=== PATIENT | female | born 1990 | race Hispanic/Latino ===

== ENCOUNTER 2018-03-11 11:22 | Observation (INO) | payer MEDICAID ==
[~2018-03-11] VITALS: Ht 162.6 cm; Wt 81.2 kg
[2018-03-11 11:58] LABS: APPEARANCE,URINE Turbid (CLEAR); BILIRUBIN,URINE Negative (NEGATIVE); COLOR,URINE Yellow (YELLOW); GLUCOSE, URINE (UA) Negative (NEGATIVE); KETONES,URINE Negative (NEGATIVE); LEUKOCYTE ESTERASE ,URINE Large (NEGATIVE); NITRATE,URINE Negative (NEGATIVE); OCCULT BLOOD,URINE Trace (NEGATIVE); PH,URINE 5.5 (5.0-8.0); PROTEIN,URINE POS 1+ (NEGATIVE)
[2018-03-11 12:05] LABS: BACTERIA,URINE Few /HPF (None Seen); SQUAMOUS EPITHELIAL CELL,UR Few /HPF (0-2); WBC,URINE 51-100 /HPF (0-1)
[2018-03-11 12:06] LABS: MUCUS,URINE Moderate LPF (None Seen)
[2018-03-11] MEDS ORDERED: LACTATED RINGERS 1000ML 1,000 ML IV PRN (13:08)
[2018-03-11] MEDS ORDERED: CEFTRIAXONE 1GM/D5W 50ML 50 ML IV SCH (13:15)
[2018-03-11] MEDS ORDERED: CEFTRIAXONE SODIUM 1 GM IVP SCH (13:30)
[2018-03-11 14:50] VITALS: BP 107/64
== END 2018-03-11 15:15 | disposition home or self-care (01) ==
LOC: LDH 11:22
PROVIDERS: ADMIT Specialist; ATTEND Specialist
DX: O60.03 Preterm labor without delivery, third trimester (principal); Z3A.32 32 weeks gestation of pregnancy
CPT/HCPCS: 59025; 76819 ×2; 81001; 96374; G0378 ×5; J0696 ×2; 96360

== ENCOUNTER 2018-04-02 14:59 | Observation (INO) | payer MEDICAID ==
[2018-04-02] MEDS ORDERED: LACTATED RINGERS 1000ML 1,000 ML IV SCH (15:30)
[2018-04-02] MEDS ORDERED: LACTATED RINGERS 1000ML 1,000 ML IV ONE (15:34)
[2018-04-02] MEDS ORDERED: TERBUTALINE SULFATE VIAL 1MG/ML SQ ONE (17:45)
== END 2018-04-03 10:09 | disposition home or self-care (01) ==
LOC: INTOOBSV 14:59 → LDH 14:59 → OBSVTOIN 14:59 → UNDOADMOB 14:59
PROVIDERS: ADMIT Specialist; ATTEND Specialist
DX: O30.003 Twin pregnancy, unspecified number of placenta and unspecified number of amniotic sacs, third trimester (principal); O26.893 Other specified pregnancy related conditions, third trimester; R10.9 Unspecified abdominal pain; O99.323 Drug use complicating pregnancy, third trimester; F19.10 Other psychoactive substance abuse, uncomplicated; Z3A.35 35 weeks gestation of pregnancy
CPT/HCPCS: 76819 ×2; 96360; 96361 ×3; 96372; G0378 ×20; J3105; J7120 ×3

== ENCOUNTER 2018-04-08 12:00 | Inpatient (IN) | payer MEDICAID ==
[~2018-04-08] VITALS: Ht 160 cm; Wt 90.3 kg
[2018-04-08 15:18] LABS: HEMATOCRIT 30.6 % (36-48); MEAN CORPUSCULAR HEMOGLOBIN 25.5 pg (27.0-33.0); MEAN CORPUSCULAR HGB CONC 32.7 g/dL (32.0-36.0); NUCLEATED RED BLOOD CELLS 0.1 % (0.0-0.19); PLATELET COUNT (AUTO) 172 K/uL (130-400); RED BLOOD CELL COUNT(AUTO) 3.92 MIL/uL (4.00-5.50); RED CELL DISTRIBUTION WIDTH 15.2 % (11.0-15.5); WHITE BLOOD COUNT (AUTO) 8.5 K/uL (4.8-10.8)
[2018-04-09 09:19] LABS: HEPATITIS Bs ANTIGEN SCREEN P Negative (Negative)
[2018-04-10] MEDS ORDERED: LACTATED RINGERS 1000ML 1,000 ML IV SCH (06:00)
[2018-04-10] MEDS ORDERED: CEFAZOLIN SODIUM 1 GM VIAL IVP PRN (06:00)
[2018-04-10 06:24] LABS: AMPHET/METH SCREEN,URINE NEGATIVE (NEGATIVE); BARBITURATE SCREEN, URINE NEGATIVE (NEGATIVE); BENZODIAZEPINES SCREEN,URINE NEGATIVE (NEGATIVE); CANNABINOID SCREEN,URINE NEGATIVE (NEGATIVE); COCAINE SCREEN,URINE NEGATIVE (NEGATIVE); OPIATE SCREEN,URINE NEGATIVE (NEGATIVE); PHENCYCLIDINE SCREEN,URINE NEGATIVE (NEGATIVE)
[2018-04-10] MEDS ORDERED: SENSORCAINE/DEXT/PF 0.75% 2ML AMP IJ ONE (07:30)
[2018-04-10] MEDS ORDERED: DURAMORPH PF1 MG/ML 10ML AMP IV ONE (07:32)
[2018-04-10] MEDS ORDERED: FENTANYL CITRATE PF 50 MCG/1 ML 2ML VIAL ONE (07:33)
[2018-04-10] MEDS ORDERED: CEFAZOLIN SODIUM 1 GM VIAL IVP ONE (07:59)
[2018-04-10] MEDS ORDERED: PHENYLEPHRINE HCL 10 MG/ML 1ML VIAL IV ONE (08:25)
[2018-04-10] MEDS ORDERED: ONDANSETRON HCL 4 MG/2 ML VIAL ONE (08:25)
[2018-04-10] MEDS ORDERED: SODIUM CHLORIDE 0.9% 10 ML VIAL ONE (08:25)
[2018-04-10] MEDS ORDERED: OXYTOCIN-LR 20 UNITS/1000 ML 1,000 ML IV PRN (08:38)
[2018-04-10] MEDS ORDERED: MEPERIDINE-PF 75 MG/ML SYG IM PRN (08:45)
[2018-04-10] MEDS ORDERED: SODIUM CHLORIDE 0.9% 10 ML VIAL IVP PRN (08:45)
[2018-04-10] MEDS ORDERED: PROMETHAZINE HCL 25 MG/ML 1ML AMPULE IM PRN ×2 (08:45→09:15)
[2018-04-10] MEDS ORDERED: OXYTOCIN 10 USP UNITS/ML ONE ×2 (08:56→14:08)
[2018-04-10] MEDS ORDERED: LACTATED RINGERS 1000ML 1,000 ML IV ONE (08:56)
[2018-04-10] MEDS ORDERED: ONDANSETRON HCL 4 MG/2 ML VIAL IVP PRN ×2 (09:15)
[2018-04-10] MEDS ORDERED: MORPHINE SULFATE 2 MG/ML 1ML SYG IVP PRN (09:15)
[2018-04-10] MEDS ORDERED: ONDANSETRON HCL 4 MG/2 ML 8 MG in SODIUM CHLORIDE 0.9% 50 ML IVP NR (09:15)
[2018-04-10] MEDS ORDERED: HYDROCODONE/ACETAMINOPHEN 5/325 MG TAB PO PRN (09:15)
[2018-04-10] MEDS ORDERED: METOCLOPRAMIDE 10 MG/2 ML VIAL IVP PRN (09:15)
[2018-04-10] MEDS ORDERED: DiphenhydrAMINE HCL 50 MG/ML VIAL IVP PRN (09:15)
[2018-04-10] MEDS ORDERED: EPHEDRINE SULFATE 50 MG/ML AMPULE IVP PRN (09:15)
[2018-04-10] MEDS ORDERED: NALOXONE HCL 0.4 MG/1 ML ML IVP PRN ×2 (09:15)
[2018-04-10 09:28] VITALS: BP 121/69
[2018-04-10 11:34] VITALS: BP 104/61
[2018-04-10 11:37] VITALS: BP 136/75
[2018-04-10 15:29] VITALS: BP 133/89
[2018-04-10] MEDS: HYDROCODONE/ACETAMINOPHEN 5/325 MG TAB PO PRN (18:19)
[2018-04-10] MEDS: DEXTROSE 5 %-0.45 % NACL 1,000 ML IV PRN (18:20)
[2018-04-10 19:29] VITALS: BP 134/77
[2018-04-10 23:39] VITALS: BP 130/81
[2018-04-11] MEDS: DEXTROSE 5 %-0.45 % NACL 1,000 ML IV PRN (02:20)
[2018-04-11 03:19] VITALS: BP 133/86
[2018-04-11] MEDS: HYDROCODONE/ACETAMINOPHEN 5/325 MG TAB PO PRN (03:50)
[2018-04-11 06:52] LABS: HEMATOCRIT 25.8 % (36-48); MEAN CORPUSCULAR HEMOGLOBIN 25.2 pg (27.0-33.0); MEAN CORPUSCULAR HGB CONC 32.6 g/dL (32.0-36.0); MEAN CORPUSCULAR VOLUME 77.2 fL (79-99); PLATELET COUNT (AUTO) 132 K/uL (130-400); RED BLOOD CELL COUNT(AUTO) 3.34 MIL/uL (4.00-5.50); RED CELL DISTRIBUTION WIDTH 14.7 % (11.0-15.5); WHITE BLOOD COUNT (AUTO) 8.3 K/uL (4.8-10.8)
[2018-04-11 07:50] VITALS: BP 122/77
[2018-04-11] MEDS ORDERED: DIPHENHYDRAMINE HCL 25 MG CAPSULE PO PRN (08:00)
[2018-04-11] MEDS ORDERED: ACETAMINOPHEN-CODEINE 300/30MG TAB PO PRN (08:00)
[2018-04-11] MEDS: IBUPROFEN 800 MG TAB PO SCH ×6 (08:45→23:54)
[2018-04-11] MEDS: DOCUSATE SODIUM 100 MG CAP PO SCH ×2 (09:18→20:57)
[2018-04-11 12:09] VITALS: BP 126/74
[2018-04-11] MEDS ORDERED: BISACODYL 10 MG SUPP.RECT RC PRN (15:15)
[2018-04-11 15:33] VITALS: BP 134/84
[2018-04-11] MEDS: SIMETHICONE 80 MG TAB.CHEW PO PRN ×2 (15:57→20:56)
[2018-04-11 19:50] VITALS: BP 129/84
[2018-04-11 23:54] VITALS: BP 126/77
[2018-04-12] MEDS: IBUPROFEN 800 MG TAB PO SCH ×3 (00:54→09:02)
[2018-04-12] MEDS: HYDROCODONE/ACETAMINOPHEN 5/325 MG TAB PO PRN (03:01)
[2018-04-12 03:54] VITALS: BP 130/79
[2018-04-12 08:07] VITALS: BP 130/76
[2018-04-12] MEDS: SIMETHICONE 80 MG TAB.CHEW PO PRN (09:02)
[2018-04-12] MEDS: DOCUSATE SODIUM 100 MG CAP PO SCH (09:02)
== END 2018-04-12 11:10 | disposition home or self-care (01) | DRG 540 ==
LOC: LDH 04-10 05:43 → WSH 04-10 09:28
PROVIDERS: ADMIT Specialist; ATTEND Specialist
PROC: 3E0234Z Introduction of Serum, Toxoid and Vaccine into Muscle, Percutaneous Approach (ICD-10-PCS; 2018-04-10)
PROC: 0UB70ZZ Excision of Bilateral Fallopian Tubes, Open Approach (ICD-10-PCS; 2018-04-10)
PROC: 10D00Z1 Extraction of Products of Conception, Low, Open Approach (ICD-10-PCS; principal; 2018-04-10 07:30)
DX: O30.003 Twin pregnancy, unspecified number of placenta and unspecified number of amniotic sacs, third trimester (principal); O41.03X0 Oligohydramnios, third trimester, not applicable or unspecified; O14.04 Mild to moderate pre-eclampsia, complicating childbirth; O32.1XX2 Maternal care for breech presentation, fetus 2; Z37.2 Twins, both liveborn; Z90.49 Acquired absence of other specified parts of digestive tract; Z3A.37 37 weeks gestation of pregnancy; Z30.2 Encounter for sterilization; Z23 Encounter for immunization
CPT/HCPCS: 36415; 59510; 80305; 85027; 86592; 86850; 86900; 86901; 87340; 88302; 88307; A4344; A4606; J0690; J2274; J2370; J2405; J2590; J3010; J3490; J7120